=== PATIENT | female | born 1955 | race Caucasian/White ===

== ENCOUNTER 2017-06-17 09:37 | Emergency (ER) | payer OTHER ==
[~2017-06-17] VITALS: Ht 160 cm; Wt 58.5 kg
--- NOTE | 2017-06-17 10:37 | CT SCAN REPORT ---
EXAMINATION: CT HEAD WITHOUT CONTRAST CLINICAL INFORMATION: Transient neurologic symptoms. COMPARISON: 12/24/2013 TECHNIQUE: Contiguous axial imaging was performed from the skull base to vertex without intravenous administration of contrast. DLP: 607 mGy-cm FINDINGS: There is no evidence of acute intracranial hemorrhage or territorial infarction. No abnormal mass effect or midline shift is seen. Pradhan to white matter differentiation is well preserved. No extra-axial fluid collections are identified. The ventricles are normal in size. There is no abnormal attenuation within the brain parenchyma. No acute osseous abnormalities. There is opacification of a few posterior left ethmoid air cells. The mastoid air cells are nonpneumatized bilaterally. The middle ear cavities are clear. There are prominent degenerative changes of both temporomandibular joints, stable. No acute soft tissue abnormalities. IMPRESSION: No acute intracranial pathology.
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
[2017-06-17 11:34] LABS: ABSOLUTE BASOPHIL COUNT 0 /CUMM (0.0-0.2); ABSOLUTE EOSINOPHIL COUNT 0 /CUMM (0.0-0.7); ABSOLUTE GRANULOCYTE CT 6.7 /CUMM (1.4-6.5); ABSOLUTE LYMPH COUNT 0.9 /CUMM (1.2-3.4); ABSOLUTE MONOCYTE COUNT 0.3 /CUMM (0.10-0.60); BASOPHIL % 0.3 % (0.0-2.0); EOSINOPHIL % 0.2 % (0-5); HEMATOCRIT 40.7 % (37-47); MEAN CORPUSCULAR HGB 31.3 PG (27.0-31.0); MEAN CORPUSCULAR HGB CONC 34.6 G/DL (33.0-37.0); MEAN CORPUSCULAR VOLUME 90.4 FL (81.0-99.0); MEAN PLATELET VOLUME 9.2 FL (7.4-10.4); PLATELET COUNT 208 /CUMM (130-400); RBC DISTRIBUTION WIDTH 13.3 % (11.5-14.5); WHITE BLOOD CELL COUNT 7.9 /CUMM (4.8-10.8)
[2017-06-17 11:50] LABS: GRANULOCYTE % 84.2 % (42.2-75.2)
--- NOTE | 2017-06-17 15:29 | MRI REPORT ---
EXAMINATION: MR BRAIN WITHOUT CONTRAST CLINICAL INFORMATION: 61-year-old woman with TIA. COMPARISON: 06/17/[address] TECHNIQUE: MRI of the brain without contrast was obtained using routine sequences. FINDINGS: No focal reduced diffusion is seen to suggest acute or subacute cerebral ischemia. No intracranial mass, intracerebral edema, intra-axial blood products, midline shift, or extra-axial collection is visualized. The ventricles and sulcal spaces appear normal. Normal arterial and venous vascular flow voids are present. There is minimal mucosal thickening in the ethmoid air cells. IMPRESSION: Normal MR appearance of the brain. No imaging evidence of acute cerebral ischemia or hemorrhage.
[2017-06-17 15:51] VITALS: BP 131/71
== END 2017-06-17 15:59 ==
LOC: ERH 09:37
PROVIDERS: Physician Assistant
DX: H53.8 Other visual disturbances (principal); R53.1 Weakness; Z72.89 Other problems related to lifestyle
CPT/HCPCS: 70551; 93005; 93010